=== PATIENT | male | born 1980 | race Caucasian/White ===

== ENCOUNTER 2023-10-14 11:23 | Emergency (ER) | payer MEDICAID ==
[~2023-10-14] VITALS: Ht 177.8 cm; Wt 81.6 kg
[2023-10-14 11:32] VITALS: BP_SYST 140; PULSE 79; RESP 18; TEMP 98.6; O2SAT 98
[2023-10-14 13:01] VITALS: BP_SYST 140; PULSE 79; RESP 18; TEMP 98.6; O2SAT 98
== END 2023-10-14 13:00 | disposition home or self-care (01) ==
LOC: SED 11:23
DX: S62.616A Displaced fracture of proximal phalanx of right little finger, initial encounter for closed fracture (principal); X58.XXXA Exposure to other specified factors, initial encounter; Y93.89 Activity, other specified; Y92.89 Other specified places as the place of occurrence of the external cause; Y99.8 Other external cause status
CPT/HCPCS: 73140; 99283